=== PATIENT | female | born 1985 | race Caucasian/White ===

== ENCOUNTER 2017-04-06 12:49 | Outpatient (CLI) | payer OTHER ==
--- NOTE | 2017-04-06 14:41 | ULT ---
OB ULTRASOUND: Date: 04/06/17 HISTORY: anatomy evaluation. FINDINGS: A single live intrauterine gestation is seen with measurements corresponding to an estimated gestati onal age of 24 weeks/5 days and MAGDY at 07/20/17. The estimated weight measures 685 gm, or 1 lb . 8 oz. measurements are as follows: BPD: 5.99 cm, 24 weeks/3 days HC: 23.22 cm, 25 weeks/2 days AC: 19.67 cm, 24 weeks/2 days FL: 4.30 cm, 24 weeks/0 days heart rate measures 144 beats/minute. Placenta is posteriorly located without evidence of plac enta previa. Amniotic fluid is within normal limits. Three vessel cord, cord insertion, kidneys, bladder, stomach, four chamber heart, lateral vent ricles, cerebellum, lips/nose, spine, upper and lower extremities are visualized. No definite anomalies are seen. IMPRESSION: Single live intrauterine of 24 weeks/5 days estimated gestational age and AMGDY at 8. POS: OFF
== END 2017-04-06 12:50 | disposition home or self-care (01) ==
LOC: ULT 12:49
PROVIDERS: ATTEND Family Medicine
DX: Z34.01 Encounter for supervision of normal first pregnancy, first trimester (principal)
CPT/HCPCS: 76805

== ENCOUNTER 2017-07-15 03:50 | Inpatient (IN) | payer OTHER ==
[2017-07-15 04:30] VITALS: BMI 28.0
[2017-07-15] MEDS ORDERED: Fentanyl 4 mcg/Marc 0.1% Cadd 100 ML ONE (04:36)
[2017-07-15] MEDS ORDERED: Methylergonovine 0.2 MG/ML VIAL IM PRN (05:00)
[2017-07-15] MEDS ORDERED: Misoprostol 200 MCG TAB RC PRN (05:00)
[2017-07-15] MEDS ORDERED: HYDROcodone/Acetaminophen 5/325 mg Tablet PO PRN ×3 (05:00→09:40)
[2017-07-15] MEDS ORDERED: Ondansetron HCl/PF 4 MG/2 ML Vial IVP PRN ×3 (05:00→09:40)
[2017-07-15] MEDS ORDERED: LR / Pitocin 40 units/1000 ml 40 UNITS/1,000 ML BAG IV SCH (05:00)
[2017-07-15] MEDS ORDERED: Promethazine HCl 25 MG/ML VIAL IM PRN ×2 (05:00→05:49)
[2017-07-15] MEDS ORDERED: Ibuprofen 800 MG TAB PO PRN (05:00)
[2017-07-15] MEDS ORDERED: LR 500 ML/Oxytocin 10 units 500 ML IV SCH ×2 (05:00)
[2017-07-15] MEDS ORDERED: Lactated Ringer's 1,000 ML IV SCH ×2 (05:00)
[2017-07-15 05:12] LABS: Hemoglobin 13.5 g/dL (12.0-16.0); Mean Corpuscular HGB CONC 33.7 g/dL (32.0-36.0); Mean Corpuscular Hemoglobin 30.6 pg (27.0-31.0); Mean Corpuscular Volume 90.7 fl (81.0-99.0); Mean Platelet Volume 9.6 fL (7.4-10.4); Platelet Count 213 thou/uL (130-400); RBC Distribution Width 13.3 % (11.5-14.5); Red Blood Cell (RBC) Count 4.42 mill/uL (4.20-5.40); White Blood Cell (WBC) Count 14.7 thou/uL (4.8-10.8)
[2017-07-15 05:44] LABS: HBSAg Index 0.13 S/CO (0-0.99); Hep B Surf Ag Non-Reactive S/CO (NonReactive)
[2017-07-15] MEDS ORDERED: Acetaminophen 325 MG TAB PO PRN (05:49)
[2017-07-15] MEDS ORDERED: Naloxone HCl 0.4 mg/ml Vial IVP PRN ×2 (05:49)
[2017-07-15] MEDS ORDERED: ePHEDrine/0.9% NaCl/PF SYRINGE 50 mg/10 ml SLOW IVP PRN (05:49)
[2017-07-15] MEDS ORDERED: Eucerin (Mineral Oil/Petrolatum,White) 30 gm Jar TOP PRN (05:49)
[2017-07-15] MEDS ORDERED: diphenhydrAMINE 50 MG/ML VIAL IVP PRN (05:49)
[2017-07-15] MEDS ORDERED: Lactated Ringer's 500 ML IV PRN (05:49)
[2017-07-15] MEDS ORDERED: Lidocaine 1% (PF) 30 ML VIAL ONE (05:59)
[2017-07-15] MEDS ORDERED: Fentanyl 4mcg/Marcaine 0.1% Cassette 100 ML EPIDURAL SCH (06:00)
[2017-07-15] MEDS ORDERED: Communication Order-Pharmacy FS SCH (06:00)
[2017-07-15 06:30] LABS: Syphilis Antibody Nonreactive (Nonreactive); Syphilis Antibody Index 0.04 S/CO (<1.00 Non-Reactive)
[2017-07-15] MEDS ORDERED: Bupivacaine 0.25% HCL 30 ML VIAL ONE (09:00)
[2017-07-15] MEDS ORDERED: Prenatal Vitamin 1 TAB PO SCH ×2 (09:40→10:15)
[2017-07-15] MEDS ORDERED: LR / Pitocin 40 units/1000 ml 1,000 ML IV SCH (09:40)
[2017-07-15] MEDS ORDERED: Acetaminophen/Codeine 30-300mg Tablet PO PRN (09:40)
[2017-07-15] MEDS ORDERED: Bisacodyl 10 MG SUPP PR PRN (09:40)
[2017-07-15] MEDS ORDERED: Docusate Calcium (SURFAK) 240 MG CAP PO SCH ×2 (09:40→10:15)
[2017-07-15] MEDS ORDERED: Ferrous Sulfate 325 MG TAB PO SCH ×2 (09:40→10:15)
[2017-07-15] MEDS ORDERED: Lanolin Ointment 7 GM TUBE TOP PRN (09:40)
[2017-07-15] MEDS ORDERED: diphenhydrAMINE 25 MG CAP PO PRN (09:40)
[2017-07-15] MEDS ORDERED: Benzocaine/Menthol 20-0.5% 60 ML CAN TOP PRN (09:40)
[2017-07-15] MEDS ORDERED: Milk Of Magnesia 30 ML UDCUP PO PRN (09:40)
[2017-07-15] MEDS ORDERED: Preparation H Ointment 28 GM TUBE PR PRN (09:40)
[2017-07-15] MEDS ORDERED: Sodium Chloride 0.9% 10 ML ONE (11:40)
[2017-07-15] MEDS: Ibuprofen 800 MG TAB PO SCH ×2 (14:47→21:59)
[2017-07-15] MEDS: Ferrous Sulfate 325 MG TAB PO SCH (18:45)
[2017-07-15] MEDS: Docusate Calcium (SURFAK) 240 MG CAP PO SCH (21:59)
[2017-07-16] MEDS: Ibuprofen 800 MG TAB PO SCH (05:02)
[2017-07-16 05:06] VITALS: TEMP 97.8
[2017-07-16 07:53] VITALS: BP 102/55
[2017-07-16] MEDS ORDERED: Prenatal Vitamin 1 TAB PO SCH (09:00)
[2017-07-16] MEDS: Docusate Calcium (SURFAK) 240 MG CAP PO SCH (09:17)
[2017-07-16] MEDS: Ferrous Sulfate 325 MG TAB PO SCH (09:17)
[2017-07-16] MEDS ORDERED: Adacel (T-DAP) 0.5 ML VIAL IM ONE (10:00)
== END 2017-07-16 11:45 | disposition home or self-care (01) | DRG 775 ==
LOC: L&D/OP 03:50 → L&D 04:21 → 3SW 09:27
PROVIDERS: ADMIT Family Medicine; ATTEND Family Medicine
PROC: 10E0XZZ Delivery of Products of Conception, External Approach (ICD-10-PCS; principal; 2017-07-15)
PROC: 3E0234Z Introduction of Serum, Toxoid and Vaccine into Muscle, Percutaneous Approach (ICD-10-PCS; 2017-07-16)
DX: O80 Encounter for full-term uncomplicated delivery (principal); Z23 Encounter for immunization; Z37.0 Single live birth; Z3A.39 39 weeks gestation of pregnancy
CPT/HCPCS: 36415; 51702; 85027; 85461; 86780; 87340; 90384; 96372; 99285; A4216; J2001; S0020

== ENCOUNTER 2017-08-21 06:22 | Day surgery (SDC) | payer OTHER ==
[2017-08-21] MEDS ORDERED: Midazolam HCl 2 mg/2 ml Vial ONE (06:41)
[2017-08-21] MEDS ORDERED: Fentanyl 100 MCG/2 ML VIAL ONE ×2 (06:41)
[2017-08-21] MEDS ORDERED: Lidocaine 2% w/Epinephrine 1:200K 20 ML VIAL ONE (06:57)
[2017-08-21] MEDS ORDERED: Bupivacaine 0.25% HCL 30 ML VIAL ONE (06:57)
[2017-08-21] MEDS ORDERED: CEFAZOLIN/Water 2 GM/20 ML SYRINGE ONE (07:07)
[2017-08-21 07:46] LABS: #Eosinphils 0.5 thou/uL (0.0-0.7); #Lymphocytes 2.4 thou/uL (1.20-3.40); #Monocytes 0.4 thou/uL (0.11-0.59); #Neutrophils 1.6 thou/uL (1.40-6.50); %Basophils 0.4 % (0.0-1.0); %Eosinophils 9.3 % (0.0-10.0); %Lymphocytes 48.7 % (21.0-51.0); %Monocytes 8.7 % (0.0-10.0); Hemoglobin 13.4 g/dL (12.0-16.0); Mean Corpuscular HGB CONC 34.1 g/dL (32.0-36.0); Mean Corpuscular Hemoglobin 30.6 pg (27.0-31.0); Mean Corpuscular Volume 89.9 fl (81.0-99.0); Mean Platelet Volume 9.5 fL (7.4-10.4); Platelet Count 179 thou/uL (130-400); RBC Distribution Width 13.1 % (11.5-14.5); Red Blood Cell (RBC) Count 4.36 mill/uL (4.20-5.40); White Blood Cell (WBC) Count 4.9 thou/uL (4.8-10.8)
--- NOTE | 2017-08-21 10:03 | OP ---
PREOPERATIVE DIAGNOSIS: Umbilical hernia. SURGEON: Delon Garcia M.D. PROCEDURE PERFORMED: Umbilical hernia repair with mesh. INDICATIONS: A 32-year-old female who recently is and developed an umbilical hernia durin g that remains large. FINDINGS: A 1.5 cm defect. PROCEDURE IN DETAIL: After informed consent was obtained, patient was taken to the OR and given gene ral mask anesthesia, placed in the supine position. Her abdomen was prepped and draped in the usual fashion. Local anesthesia infiltrated subcutaneously and deep. A subumbilical incision was albin Hyltonu divided sharply. The hernia sac was dissected from surrounding skin sharply down to the fa scia, then excised sharply at the fascial level and the hernia sac removed. The contents were just s ome omentum that was reduced. The defect was approximately 1.5 cm. Hemostasis achieved with electro cautery. A 6.4 cm Proceed mesh was inserted intra-abdominally after being hydrated. The wings were lifted up and then sutured to the abdominal wall with interrupted 0 Ethibond suture. The mesh was fu rther secured to both superior and inferior margin with Ethibond. Hemostasis was assured. The wound irrigated. This skin was sutured to the abdominal wall with interrupted 3-0 Vicryls to restore umbi lical contour. The skin closed with interrupted 4-0 Rapide. Steri-Strips applied. Sterile bandage applied. The patient tolerated the procedure well and transferred to recovery in good condition. Sp onge and needle count verified correct x2.
[2017-08-21] MEDS ORDERED: Dexamethasone 20 MG/5 ML VIAL ONE (16:21)
[2017-08-21] MEDS ORDERED: Ondansetron PF 4 MG/2 ML Vial ONE (16:21)
[2017-08-21] MEDS ORDERED: Lidocaine 1% PF 5 ML VIAL ONE (16:21)
[2017-08-21] MEDS ORDERED: PROPOFOL 200 MG/20 ML VIAL ONE (16:21)
== END 2017-08-21 10:48 | disposition home or self-care (01) ==
LOC: SDC 06:22
PROVIDERS: ATTEND Surgery
PROC: 0WUF0JZ Supplement Abdominal Wall with Synthetic Substitute, Open Approach (ICD-10-PCS; principal; 2017-08-21)
DX: K42.9 Umbilical hernia without obstruction or gangrene (principal)
CPT/HCPCS: 36415; 85025; C1781; J1100; J2001; J2250; J2405; J2704; J3010; S0020